=== PATIENT | male | born 1955 | race Caucasian/White ===

== ENCOUNTER 2020-11-27 04:04 | Emergency (ER) | payer BC ==
[~2020-11-27] VITALS: Ht 180.3 cm; Wt 108.0 kg
[2020-11-27 04:53] LABS: BASO # 0.1 10^3/uL (0.0-0.2); BASO % 0.4 % (0.0-1.0); EOS # 0.2 10^3/uL (0.0-0.5); EOS % 1.1 % (0.0-3.0); HEMATOCRIT 43.3 % (42.0-52.0); HEMOGLOBIN 14.1 g/dl (13.5-17.5); LYMPH # 2.4 10^3/uL (1.5-5.0); LYMPH % 17.5 % (24.0-44.0); MEAN CORPUSCULAR HEMOGLOBIN 28.4 pg (27.0-33.0); MEAN CORPUSCULAR HGB CONC 32.6 g/dl (32.0-36.5); MEAN CORPUSCULAR VOLUME 87.1 fl (80.0-96.0); MONO # 0.9 10^3/uL (0.0-0.8); MONO % 6.8 % (2.0-8.0); NEUTROPHILS # 10.2 10^3/uL (1.5-8.5); NEUTROPHILS % 73.8 % (36.0-66.0); PLATELET COUNT, AUTOMATED 292 10^3/uL (150-450); RED BLOOD COUNT 4.97 10^6/uL (4.30-6.10); WHITE BLOOD COUNT 13.8 10^3/uL (4.0-10.0)
[2020-11-27] MEDS ORDERED: METOCLOPRAMIDE INJ 10MG/2ML VIAL (J2765 PER 1) IV ONE (05:00)
[2020-11-27] MEDS ORDERED: fentaNYL 100 MCG/2 ML INJECTION (J3010) IV ONE (05:05)
[2020-11-27 05:28] LABS: ALBUMIN 3.8 GM/DL (3.2-5.2); ALT/SGPT 44 U/L (12-78); BILIRUBIN,DIRECT 0.1 MG/DL (0.0-0.2); BILIRUBIN,TOTAL 0.3 MG/DL (0.2-1.0); BLOOD UREA NITROGEN 26 MG/DL (7-18); CALCIUM LEVEL 9.3 MG/DL (8.8-10.2); CARBON DIOXIDE LEVEL 28 MEQ/L (21-32); CHLORIDE LEVEL 103 MEQ/L (98-107); CK-MB VALUE MASS 2.6 NG/ML (<3.6); CPK CREATINE PHOSPHOKINASE 237 U/L (39-308); CREATININE FOR GFR 1.84 MG/DL (0.70-1.30); GLOMERULAR FILTRATION RATE 39.5 (>49); GLUCOSE, FASTING 214 MG/DL (70-100); SODIUM LEVEL 137 MEQ/L (136-145); TOTAL PROTEIN 8.2 GM/DL (6.4-8.2); TROPONIN I < 0.02 NG/ML (< 0.10)
--- NOTE | 2020-11-27 05:33 | REPVR ---
PROCEDURE INFORMATION: Exam: XR Chest Exam date and time: 11/27/2020 5:07 AM Age: 65 years old Clinical indication: Pain; Angina pectoris; Additional info: Chest pain TECHNIQUE: Imaging protocol: XR of the chest. Views: 1 view. COMPARISON: No relevant prior studies available. FINDINGS: Tubes, catheters and devices: There are surgical clips in the lower neck. Lungs: Lung volumes are somewhat shallow. There is no significant consolidation. Pleural spaces: No pleural effusions or pneumothorax identified. Heart/Mediastinum: The heart is within normal size limits, when allowing for the AP technique and relatively low lung volumes. Diaphragm: The right diaphragm is mildly elevated. Bones/joints: Unremarkable. IMPRESSION: 1. No evidence of acute pleural or parenchymal disease. 2. Mildly elevated right diaphragm. Electronically signed by: Gladys Henao On 11/27/2020 05:33:06 AM
[2020-11-27 05:40] LABS: RSV AMPLIFICATION NEGATIVE (NEGATIVE)
[2020-11-27] MEDS ORDERED: NS 1,000 ML IV ONE (06:20)
--- NOTE | 2020-11-27 07:11 | REPVR ---
PROCEDURE INFORMATION: Exam: CT Abdomen And Pelvis Without Contrast Exam date and time: 11/27/2020 6:29 AM Age: 65 years old Clinical indication: Other: Abd pain; Additional info: Abdominal pain TECHNIQUE: Imaging protocol: Computed tomography of the abdomen and pelvis without contrast. Radiation optimization: All CT scans at this facility use at least one of these dose optimization techniques: automated exposure control; mA and/or kV adjustment per patient size (includes targeted exams where dose is matched to clinical indication); or iterative reconstruction. COMPARISON: CR PORTABLE CHEST X-RAY 11/27/2020 4:35 AM FINDINGS: Lungs: There is minimal peripheral density with associated mild architectural distortion posteriorly in the right lower lobe and in the inferior lingula, which may be atelectasis or postinflammatory scarring. Liver: There is a heterogeneous decrease in hepatic parenchymal density, consistent with fatty infiltration. Gallbladder and bile ducts: No gallstones are identified, but there is a suggestion of gallbladder wall thickening and there is stranding around the gallbladder. There is no biliary ductal dilation. Pancreas: The pancreas appears unremarkable. No pancreatic ductal dilation identified. Spleen: The unenhanced spleen appears unremarkable. Adrenal glands: The adrenal glands are normal. Kidneys and ureters: There is a 2.4 cm exophytic cyst at the right kidney. No follow-up imaging is needed. There is bilateral, symmetric perinephric stranding. There are no ureteral stones or hydronephrosis. Stomach and bowel: The small bowel appears unremarkable. Mild diverticulosis is present in the colon. There is no dilation or thickening of the colon. Appendix: A normal appendix is identified. Intraperitoneal space: There is no evidence of free intraperitoneal or pelvic fluid. There is no free intraperitoneal air. Vasculature: The aorta demonstrates mild atherosclerotic calcification. No aortic aneurysm. Lymph nodes: No enlarged lymph nodes. Urinary bladder: The bladder is mostly collapsed. No bladder stones are identified. Reproductive: The prostate gland demonstrates mild nonspecific enlargement. Bones/joints: Degenerative endplate changes are seen at multiple levels in the visualized spine. There are mild degenerative changes in both hips. No suspicious osseous lesions. No acute fractures. Soft tissues: There is a midline incision scar in the lower anterior abdominal wall. There is a mesh in the mid anterior abdominal wall. There are bilateral fat containing inguinal hernias, left larger than right. IMPRESSION: 1. No definite gallstones identified, but there is mild gallbladder wall thickening and stranding around the gallbladder, consistent with acute cholecystitis in the appropriate clinical setting. No biliary ductal dilation identified. 2. Diverticulosis in the colon without evidence of acute diverticulitis. 3. Fatty liver. 4. Bilateral fat containing inguinal hernias, left larger than right. COMMENTS: Consistent with the [employer]'s Incidental Findings Committee white paper (J [employer] [place] [employer] 2018): Any incidental renal lesion less than 1 cm or classified as too small to characterize, or any incidental cystic renal lesion characterized as simple-appearing, is likely benign. No follow-up imaging is recommended for these lesions per consensus recommendations based on imaging criteria. Electronically signed by: Gladys Henao On 11/27/2020 07:10:53 AM
[2020-11-27 07:48] LABS: LIPASE 222 U/L (73-393)
--- NOTE | 2020-11-27 09:16 | REP ---
INDICATION: abd pain. COMPARISON: None. TECHNIQUE: 2D ultrasound was performed through the abdomen in multiple projections and supplemented by color Doppler. FINDINGS: There is fatty liver infiltration. There are multiple gallstones, the largest is in the area of the neck of the gallbladder and measures 1.8 cm in diameter. There is gravity dependent gallbladder sludge. There is thickening of the gallbladder wall, measuring 4 mm in thickness. There is a small amount of pericholecystic fluid. The right kidney measures 11.7 x 6.6 x 4.8 cm. The renal parenchymal echogenicity is elevated. There is a benign cortical cyst in the interpolar region of the right kidney measuring 2.0 x 1.9 x 1.5 cm. There is no hydronephrosis. IMPRESSION: 1. Cholelithiasis with probable acute cholecystitis. 2. Fatty liver infiltration. 3. Increased echogenicity of the right renal cortex consistent with medical renal disease. 4. Benign cortical cyst, right kidney. <Electronically signed by Juliocesar Bethea > 11/27/20 [id number]
[2020-11-27] MEDS ORDERED: AUGM875T28 PO (10:17)
[2020-11-27 10:42] VITALS: BP 164/88
--- NOTE | 2020-11-27 16:54 | ECGEPIP ---
[facility] - ED Test Date: 2020-11-27 Pat Name: SHANTA YEBOAH Department: Room: - Gender: Male Personal Support Worker: KAREN : 1955 Requested By: MICHELLE Tang Order Number: [id number] Reading MD: Rachel Naranjo Measurements Intervals [place] Rate: 100 P: 13 PA: 156 QRS: 37 QRSD: 96 T: -13 QT: 360 QTc: 464 Interpretive Statements Normal sinus rhythm Inferior infarct , age undetermined NSTTW abnormalities No prior Electronically Signed on 11-27-2020 16:53:47 EDT by Rachel Naranjo
== END 2020-11-27 10:45 | disposition home or self-care (01) ==
LOC: M ED 04:04
DX: K80.20 Calculus of gallbladder without cholecystitis without obstruction (principal); K76.0 Fatty (change of) liver, not elsewhere classified; N28.1 Cyst of kidney, acquired; K40.90 Unilateral inguinal hernia, without obstruction or gangrene, not specified as recurrent; E11.9 Type 2 diabetes mellitus without complications; I10 Essential (primary) hypertension; K57.30 Diverticulosis of large intestine without perforation or abscess without bleeding; Z88.5 Allergy status to narcotic agent; Z88.8 Allergy status to other drugs, medicaments and biological substances
CPT/HCPCS: 71045; 74176; 76705; 80048; 80076; 82550; 82553; 83690; 84484; 85025; 87631; 93005; 93041; 94760; 96361; 96374; 96375; 99285; J2765; J3010